=== PATIENT | female | born 1975 | race Caucasian/White ===

== ENCOUNTER → 2016-12-01 | Outpatient (CLI) | payer MEDICAID ==
[2016-12-02 15:17] LABS: HEMOGLOBIN 12.1 g/dL (12.2-16.2); LYMPH # 2.1 K/mm3 (0.7-4.5); LYMPH % 32.4 % (10-50.0)
[2016-12-02 15:27] LABS: BUN 14 mg/dL (7-18); GFR (ESTIMATED) 109 ML/MIN (59-)
== END ==
LOC: LAB 14:40
PROVIDERS: Nurse Practitioner Family
DX: R53.83 Other fatigue (principal)